=== PATIENT | female | born 1960 | race Caucasian/White ===

== ENCOUNTER 2021-04-28 20:25 | Inpatient (IN) | payer OTHER ==
[~2021-04-28] VITALS: Ht 154.9 cm; Wt 68.2 kg
[~2021-04-28 20:25] MED LIST: ALPRAZOLAM0.5 MG PO; ASPIRIN EC81 MG PO; AZITHROMYCIN250 MG PO; DEXILANT60 MG PO; DITROPAN5 MG PO; DUONEB 2.5-0.5M1 AMP NEB; EFFEXOR XR75 MG PO; FLOMAX 0.4 MG0.4 MG PO; HYDROCODON-ACE1 EAC4 PO; ISOSORBIDE DINI10 MG PO; LEVAQUIN500 MG PO; LIPITOR40 M1 PO; MOBIC7.5 MG PO; NEBULIZER UNIT; PHENERGAN12.5 M1 PO; PREDNISONE 20MG20 MG PO; QUETIAPINE FUM200 MG PO; SALAGEN5 MG PO; SEROQUEL 100MG100 MG PO; TAB-A-VITE1 EACH PO; VITAMIN D1000 UNI1 PO; VRAYLAR3 MG PO; WELLBUTRIN SR150 MG PO
[2021-04-28 21:18] LABS: BASOPHIL 0.4 % (0-2); EOSINOPHIL 0.4 & (0-5); HCT 41.8 % (37.0-47.0); HGB 13.4 g/dl (12.5-16.0); LYMPHOCYTE 13.7 % (15-48); MCH 26.1 pg (25.0-31.0); MCHC 32.1 g/dL (32.0-36.0); MCV 81.5 fL (78.0-100.0); MONOCYTE 16.3 % (0-12); MPV 12.2 fL (6.0-9.5); NEUTROPHIL 68.9 % (41-80); PLT 257 K/uL (150-400); RBC 5.13 M/uL (4.20-5.40); RDW 16.9 % (11.5-14.0); WBC 11.35 K/uL (4.0-10.5)
[2021-04-28 21:39] LABS: BILIRUBIN - TOTAL 0.2 mg/dL (0.2-1.0); POTASSIUM 3.5 mmol/L (3.5-5.1)
[2021-04-28 21:44] LABS: LACTIC ACID 1.8 mmol/L (0.4-1.9)
[2021-04-29] MEDS ORDERED: LASIX40 MG PO (04:22)
[2021-04-29] MEDS ORDERED: ARICEPT 5MG TABL5 MG PO (04:23)
[2021-04-29] MEDS ORDERED: SYNTHROID25 MCG PO (04:24)
[2021-04-29] MEDS ORDERED: BUSPIRONE HCL15 MG PO (04:25)
[2021-04-29] MEDS ORDERED: PROTONIX 40MG T40 MG PO (04:26)
[2021-04-29] MEDS ORDERED: ONDANSETRON HCL4 MG PO (04:27)
[2021-04-29] MEDS ORDERED: K-DUR20 MEQ PO (04:28)
[2021-04-29] MEDS ORDERED: CARAFATE1 GM PO (04:29)
[2021-04-29] MEDS ORDERED: ALL DAY ALLERGY10 M2 PO (04:31)
[2021-04-29] MEDS ORDERED: CELEBREX **OUT100 MG PO (04:32)
[2021-04-29] MEDS ORDERED: FLONASE ALLER15.8 ML (04:35)
[2021-04-29] MEDS ORDERED: ISOSORBIDE DINI10 MG PO (04:38)
[2021-04-29] MEDS ORDERED: VENLAFAXINE HCL75 MG PO (04:40)
[2021-04-29] MEDS ORDERED: VRAYLAR6 MG PO (04:40)
[2021-04-29] MEDS ORDERED: WELLBUTRIN SR150 MG PO (04:41)
[2021-04-29] MEDS ORDERED: DITROPAN5 MG PO (04:42)
[2021-04-29 11:31] LABS: BILIRUBIN NEGATIVE (NEGATIVE); BLOOD NEGATIVE Ery/uL (NEGATIVE); CLARITY CLEAR (CLEAR); COLOR YELLOW (YELLOW); GLUCOSE (U) NORMAL (NORMAL); LEUKOCYTES NEGATIVE Leu/uL (NEGATIVE); NITRITE NEGATIVE (NEGATIVE); PROTEIN NEGATIVE (NEGATIVE); UROBILINOGEN 0.2 mg/dL (0.2-1.0)
--- NOTE | 2021-04-29 17:55 | NUR ---
NEPHROLOGY CONSULTED FOR DIALYSIS TOMORROW. ORDERS OVER PHONE GIVEN. BMP IN FOR AM. ORDER FAXED AND CALLED TO [facility]
[2021-04-30] MEDS ORDERED: BUSPIRONE HCL30 MG PO (03:10)
[2021-04-30] MEDS ORDERED: GABAPENTIN300 MG PO (05:51)
[2021-04-30] MEDS ORDERED: RISPERIDONE2 MG PO (05:54)
[2021-04-30 06:09] LABS: BASOPHIL 0.2 % (0-2); HCT 35.9 % (37.0-47.0); HGB 11.3 g/dl (12.5-16.0); MCH 26.2 pg (25.0-31.0); MCHC 31.5 g/dL (32.0-36.0); MCV 83.3 fL (78.0-100.0); MONOCYTE 6.3 % (0-12); MPV 12.5 fL (6.0-9.5); NEUTROPHIL 89.1 % (41-80); PLT 231 K/uL (150-400); RBC 4.31 M/uL (4.20-5.40); RDW 17.4 % (11.5-14.0); WBC 19.67 K/uL (4.0-10.5)
[2021-04-30 06:33] LABS: ALBUMIN 2.3 g/dL (3.4-5.0); BILIRUBIN - TOTAL 0.2 mg/dL (0.2-1.0); BUN/CREAT RATIO (CALC) 18.7 RATIO; CREATININE 0.75 mg/dL (0.51-0.95); GLOBULIN (CALCULATION) 3.4 g/dL; POTASSIUM 3.8 mmol/L (3.5-5.1); TOTAL PROTEIN 5.7 g/dL (6.4-8.2)
[2021-05-01 07:56] LABS: BASOPHIL 0.1 % (0-2); EOSINOPHIL 0 % (0-5); HCT 36.1 % (37.0-47.0); HGB 11.4 g/dl (12.5-16.0); LYMPHOCYTE 3.7 % (15-48); MCH 26.4 pg (25.0-31.0); MCHC 31.6 g/dL (32.0-36.0); MCV 83.6 fL (78.0-100.0); MONOCYTE 3.9 % (0-12); MPV 12.8 fL (6.0-9.5); NRBC 0; PLT 236 K/uL (150-400); RBC 4.32 M/uL (4.20-5.40); WBC 16.6 K/uL (4.0-10.5)
[2021-05-01 08:04] LABS: NEUTROPHIL 91.2 % (41-80)
[2021-05-01 08:12] LABS: BUN/CREAT RATIO (CALC) 29.1 RATIO; CREATININE 0.79 mg/dL (0.51-0.95); POTASSIUM 4.2 mmol/L (3.5-5.1)
[2021-05-02] MEDS ORDERED: CEFDINIR300 MG PO (07:56)
[2021-05-02] MEDS ORDERED: AZITHROMYCIN250 MG PO (07:56)
[2021-05-02] MEDS ORDERED: MEDROL 4MG DOSEP4 MG PO (07:56)
[2021-05-02] MEDS ORDERED: PREDNISONE 20MG20 MG PO (08:31)
[2021-05-02] MEDS ORDERED: ADVAIR 250-501 EACH INH (08:31)
[2021-05-02] MEDS ORDERED: DUONEB 2.5-0.5M1 AMP INH (08:31)
== END 2021-05-02 09:51 | disposition home or self-care (01) | DRG 194 ==
LOC: FER 20:25 → FMS 04-29 00:51
PROVIDERS: Emergency Medicine Emergency Medical Services; Internal Medicine; Nurse Practitioner; ADMIT Internal Medicine
DX: J18.9 Pneumonia, unspecified organism (principal); J44.1 Chronic obstructive pulmonary disease with (acute) exacerbation; J44.0 Chronic obstructive pulmonary disease with (acute) lower respiratory infection; I50.32 Chronic diastolic (congestive) heart failure; Z20.822 Contact with and (suspected) exposure to COVID-19; I11.0 Hypertensive heart disease with heart failure; F31.9 Bipolar disorder, unspecified; F41.9 Anxiety disorder, unspecified; F20.9 Schizophrenia, unspecified; F17.210 Nicotine dependence, cigarettes, uncomplicated; Z90.710 Acquired absence of both cervix and uterus; Z86.73 Personal history of transient ischemic attack (TIA), and cerebral infarction without residual deficits
CPT/HCPCS: 36415; 36600; 71045; 80048; 80053; 81003; 82803; 83605; 84145; 84484; 85025; 87040; 87088; 93005; 94010; 94640; 94664; 94667; 94668; 94760; J0456; J0696; J1650; J1885; J2930; J7030; J7050; Q0162; U0002